=== PATIENT | male | born 1995 | race African-American/Black ===

== ENCOUNTER 2019-07-24 14:43 | Emergency (ER) | payer OTHER, SELFPAY ==
[2019-07-24 14:55] VITALS: BP 137/72; PULSE 80; RESP 20; TEMP 37.4; O2SAT 100
--- NOTE | 2019-07-24 15:18 | ED.NAVMDI ---
HPI - Nausea/Vomiting/Diarrhea General Chief complaint: Nausea/Vomiting/Diarrhea Stated complaint: abdo pain and diahrea Time Seen by Provider: 07/24/19 15:18 Source: patient Mode of arrival: ambulatory Limitations: no limitations History of Present Illness HPI Narrative: Kahlil Kelley is a 24 yo male who [facility]/o N/V/D that started during the night. He believes that he ate something that upset stomach last evening and caused him to be sick during the night . he needs a note to be able to return to work Related Data Home Medications Medication Instructions Recorded Confirmed No Home Medications 07/24/19 07/24/19 Allergies Allergy/AdvReac Type Severity Reaction Status Date / Time cefuroxime [From Ceftin] Allergy Hives Verified 07/24/19 15:03 Review of Systems Review of Systems: Narrative: CONSTITUTIONAL: Denies fever, chills, sweats. EYES: Denies visual changes, redness, discharge. ENT: Denies rhinorrhea, congestion, sore throat, otalgia. CARDIOVASCULAR: Denies chest pain, palpitations, edema. RESPIRATORY: Denies dyspnea, wheezing, cough GASTROINTESTINAL: Denies abdominal pain, had nausea, vomiting, diarrhea- OK last few hours. GENITOURINARY: Denies dysuria, hematuria, abnormal discharge SKIN: Denies rash or itching. NEUROLOGIC: Denies numbness, or focal weakness. PSYCHIATRIC: Denies anxiety or depression. PMFSH Family History Family History Other No acute medical problems Social History Social History Smoking status: Current every day smoker Tobacco type: e-cigarettes/vaping Comments At time of signature, I agree with nursing past medical, surgical, social and family history. There is no relevant family history pertinent to the presenting complaint. Exam Narrative: Exam Narrative: GENERAL: This is a well-nourished, well-developed patient, in mild distress. HEAD: normocephalic, atraumatic. EYES: Sclera clear/white. Vision is grossly intact. EARS: External ears normal, auditory canals clear and without drainage, TMs normal without perforation. Hearing grossly intact. NOSE: External nose normal without nasal discharge, nares without redness, no rhinorrhea. THROAT: Mucous membranes moist, posterior pharynx NECK: Neck supple, non-tender CARDIOVASCULAR: Regular rate and rhythm without murmurs, gallops, or rubs. RESPIRATORY: Clear to auscultation. Breath sounds equal bilaterally. No wheezes, rales, or rhonchi. GASTROINTESTINAL: Abdomen soft, non-tender, SKIN: warm, intact with no suspicious lesions or rash, good texture and turgor. NEURO: awake, alert, and oriented to person, place and time. There were no obvious focal neurologic abnormalities. Steady gait EXTREMITIES: Normal range of motion. BACK: Nontender without deformity Course Course Emergency Course: Pt states that he is asymptomatic currently and he is karen to drink fluids last few hours. He would like a note to return to work tomorrow Vital Signs Vital signs: Vital Signs Temperature 99.4 F 07/24/19 14:55 Pulse Rate 80 07/24/19 14:55 Respiratory Rate 07/24/19 14:55 Blood Pressure 137/72 07/24/19 14:55 Pulse Oximetry 100 07/24/19 14:55 Temperature 99.4 F 07/24/19 14:55 Pulse Rate 80 07/24/19 14:55 Respiratory Rate 07/24/19 14:55 Blood Pressure 137/72 07/24/19 14:55 Pulse Oximetry 100 07/24/19 14:55 MDM - Nausea/Vomiting/Diarrhea Differential Diagnosis Differential diagnosis: Likely traveler's diarrhea, food poisoning, dehydration and other Discharge Plan Discharge Clinical Impression: Dehydration Patient Disposition: Home, Self-Care Condition: Stable Instructions: Dehydration (ED) Prescriptions: No Action No Home Medications RF: 0 Follow-up/Referrals: UNKNOWN,DOCTOR [Primary Care Provider] - Stand Alone Forms: Work/S
== END 2019-07-24 15:39 | disposition home or self-care (01) ==
PROVIDERS: Emergency Provider Nurse Practitioner
DX: E86.0 Dehydration (principal); R11.2 Nausea with vomiting, unspecified; R19.7 Diarrhea, unspecified; F17.290 Nicotine dependence, other tobacco product, uncomplicated
CPT/HCPCS: 99211; G0463